=== PATIENT | male | born 1955 | race Caucasian/White ===

== ENCOUNTER 2019-12-17 10:20 | Emergency (ER) | payer MEDICARE, BC ==
[~2019-12-17] VITALS: Ht 170.2 cm; Wt 62.3 kg
[2019-12-17 11:32] VITALS: BP 141/86
== END 2019-12-17 11:33 | disposition home or self-care (01) ==
LOC: ER 10:21
DX: S61.511A Laceration without foreign body of right wrist, initial encounter (principal); W45.8XXA Other foreign body or object entering through skin, initial encounter; Y93.89 Activity, other specified; Y92.89 Other specified places as the place of occurrence of the external cause; Y99.8 Other external cause status
CPT/HCPCS: 99281